=== PATIENT | female | born 1965 | race Caucasian/White ===

== ENCOUNTER 2018-11-09 20:08 | Emergency (ER) | payer SELFPAY ==
[~2018-11-09] VITALS: Ht 162.6 cm; Wt 68.0 kg
[2018-11-09] MEDS ORDERED: KETOROLAC 30MG/ML VIAL IV STA (21:24)
[2018-11-09] MEDS ORDERED: SODIUM CHLORIDE 0.9% 1,000 ML IV ONE (21:24)
[2018-11-09] MEDS ORDERED: MORPHINE SULFATE 4 MG/ML CPJ (NOT FOR IM USE) IV STA (21:24)
[2018-11-09] MEDS ORDERED: ONDANSETRON HCL 4MG/2ML INJ IV STA (21:24)
[2018-11-09] MEDS ORDERED: KETOROLAC 15MG/ML VIAL IV NR (21:33)
[2018-11-10 02:02] VITALS: BP 111/46
== END 2018-11-10 02:26 | disposition home or self-care (01) ==
LOC: ER 20:08
DX: M25.521 Pain in right elbow (principal); M25.551 Pain in right hip; M25.531 Pain in right wrist; E11.9 Type 2 diabetes mellitus without complications; W01.0XXA Fall on same level from slipping, tripping and stumbling without subsequent striking against object, initial encounter; Y93.89 Activity, other specified; Y92.89 Other specified places as the place of occurrence of the external cause; Y99.8 Other external cause status
CPT/HCPCS: 29125; 72192; 73080; 73110; 73130; 73502; 82962; 96374; 96375; 99284; J2270; J2405; J7030; Z7610; J1885